=== PATIENT | male | born 1960 | race Caucasian/White ===

== ENCOUNTER 2019-09-20 09:05 | Emergency (ER) | payer BC, SELFPAY ==
[2019-09-20 09:07] VITALS: BP 126/67; PULSE 103; RESP 20; TEMP 37.7; O2SAT 99
--- NOTE | 2019-09-20 09:17 | ED.GENADULT ---
HPI - General Adult General Chief complaint: Upper Respiratory Infection Stated complaint: FEVER Time Seen by Provider: 09/20/19 09:18 Source: patient and RN notes reviewed Mode of arrival: ambulatory Limitations: no limitations History of Present Illness HPI narrative: This is a 59 years old male presents to the office for an evaluation of fever for one week. Fever starts with low grade and went up to 103 for the last three days. He also reports sinus headache, stuffy nose, cough and chest tightness at time. Symptoms are worse at night and in the morning. He has been taking Tylenol Mucinex for his symptoms. Denies sick contact at home. Related Data Home Medications Medication Instructions Recorded Confirmed Mucinex 09/20/19 Allergies Allergy/AdvReac Type Severity Reaction Status Date / Time No Known Allergies Allergy Verified 09/20/19 09:14 Review of Systems Review of Systems: Narrative: CONSTITUTIONAL:Reports fever and ache ENT: Reports sinus congestion and headache CARDIOVASCULAR: Denies chest pain RESPIRATORY: Reports a little chest tightness with cough at night GASTROINTESTINAL: Denies abdominal pain, vomiting, diarrhea. Reports nausea GENITOURINARY: Denies urinary symptoms SKIN: Denies rash MUSCULOSKELETAL: Denies acute back pain NEUROLOGIC: Reports dizziness at time; mostly in the morning. PMFSH Past Medical History Medical History Essential (primary) hypertension Family History Family History Grandparent Diabetes mellitus Hypertension Cerebrovascular accident Father Hypertension Family history of lung cancer Social History Social History Smoking status: Light tobacco smoker Alcohol intake: current Comments At time of signature, I agree with nursing past medical, surgical, social and family history. There is no relevant family history pertinent to the presenting complaint. Exam Narrative: Exam Narrative: GENERAL: This is a well-nourished, well-developed patient, in no apparent distress. EYES: Sclera clear/white. Vision is grossly intact. EARS: External ears normal, auditory canals clear and without drainage, TMs normal without perforation. Hearing grossly intact. NOSE: External nose normal with no obvious nasal discharge, nares without redness, no rhinorrhea. THROAT: Mucous membranes moist, posterior pharynx clear. NECK: Neck supple, non-tender without lymphadenopathy, masses or thyromegaly. CARDIOVASCULAR: Regular rate and rhythm without murmurs, gallops, or rubs. RESPIRATORY: Clear to auscultation. Breath sounds equal bilaterally. No wheezes, rales, or rhonchi. GASTROINTESTINAL: Abdomen soft, non-tender, nondistended. Bowel sounds are active. No hepato-splenomegaly, or palpable masses. No guarding. SKIN: warm, intact with no suspicious lesions or rash, good texture and turgor. NEURO: awake, alert, and oriented to person, place and time. There were no obvious focal neurologic abnormalities. Steady gait Psy: appears irritate because he has been pushing around and not able to get a definate answered as to what's wrong with him. Franky Coma Scale Eye Opening: Spontaneous 4 [place] Coma Scale Motor: Obeys Commands 6 [place] Coma Scale Verbal: Oriented 5 Course Vital Signs Vital signs: Vital Signs Temperature 98.2 F 09/20/19 09:07 Pulse Rate 103 H 09/20/19 09:07 Respiratory Rate 09/20/19 09:07 Blood Pressure 126/67 09/20/19 09:07 Pulse Oximetry 99 09/20/19 09:07 Temperature 98.2 F 09/20/19 09:07 Pulse Rate 103 H 09/20/19 09:07 Respiratory Rate 09/20/19 09:07 Blood Pressure 126/67 09/20/19 09:07 Pulse Oximetry 99 09/20/19 09:07 Medical Decision Making MDM Narrative Medical decision making narrative: Discharge instructions reviewed with patient, as well as provided in
== END 2019-09-20 09:43 | disposition home or self-care (01) ==
PROVIDERS: Emergency Provider Nurse Practitioner
DX: J06.9 Acute upper respiratory infection, unspecified (principal); F17.200 Nicotine dependence, unspecified, uncomplicated; I10 Essential (primary) hypertension
CPT/HCPCS: 99213; G0463

== ENCOUNTER 2021-08-03 21:58 | Inpatient (IN) | payer BC, SELFPAY ==
--- NOTE | ~2021-08-03 | XR_ITS ---
EXAMINATION: XR chest 2V DATE: 08/03/2021 22:54 INDICATION: Chest pain. TECHNIQUE: Frontal and lateral views of the chest were obtained. COMPARISON: None. FINDINGS: The chest demonstrates clear lungs without pneumonia, pleural effusion, or pneumothorax. Th e heart size is normal. IMPRESSION: 1. No acute cardiopulmonary disease. Reviewed, dictated and finalized at location A. 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
[2021-08-03 22:00] VITALS: BP 214/106; PULSE 86; RESP 18; TEMP 36.8; O2SAT 100
--- NOTE | 2021-08-03 22:00 | ECG_ITS ---
Measurements Intervals [place] Rate: 75 P: 46 WY: 160 QRS: 48 QRSD: 93 T: -67 QT: 365 QTc: 409 Interpretive Statements SINUS RHYTHM ST-T WAVE ABNORMALITY IN INF/LAT LEADS- CONSIDER ISCHEMIA ABNORMAL ECG Electronically Signed On 08-04-2021 6:26:57 [employer] by Chris Chang D.O.
[2021-08-03 22:13] LABS: Basophils Absolute Auto 0.1 K/mm3 (0.0-0.1); Basophils Percent Auto 0.5 % (0.2-1.2); Eosinophils Absolute Auto 0.4 K/mm3 (0-0.3); Eosinophils Percent Auto 4.4 % (0-4.4); Hematocrit 45.7 % (42.0-52.0); Hemoglobin 15.1 g/dL (14.0-18.0); Immature Granulocyte Absolute 0.03 K/mm3 (0.00-0.031); Immature Granulocyte Percent A 0.3 % (0-0.5); Lymphocytes Percent Auto 31.8 % (18.3-44.2); Mean Corpuscular Hemoglobin 31.9 pg (26-34); Mean Corpuscular Volume 96.4 fl (80-100); Mean Platelet Volume 9.7 fl (7.4-10.4); Monocytes Absolute Auto 1.2 K/mm3 (0.1-0.6); Monocytes Percent Auto 13.5 % (2.6-8.5); Neutrophils Absolute Auto 4.5 K/mm3 (1.3-6.7); Neutrophils Percent Auto 49.5 % (45.5-73.1); Platelet Count Result 153 k/mm3 (150-375); Red Blood Count 4.74 M/mm3 (4.6-6.20); White Blood Count 9.1 K/mm3 (4.5-10.0)
[2021-08-03 22:22] LABS: INR 0.9; Prothrombin Time 11.9 Seconds (11.1-14.7)
[2021-08-03 22:23] LABS: Partial Thromboplastin Time 32.8 SECONDS (22.3-36.8)
[2021-08-03 22:28] LABS: Alanine Aminotransferase 56 U/L (4-50); Albumin Level 4.8 g/dL (3.5-5.1); Alkaline Phosphatase 114 U/L (38-126); Anion Gap 7 mmol/L (8-16); Aspartate Amino Transferase 69 U/L (17-59); Bilirubin,Total 0.4 mg/dL (0.2-1.3); Blood Urea Nitrogen 22 mg/dL (9-20); Calcium 9.6 mg/dL (8.4-10.2); Carbon Dioxide 27 mmol/L (22-30); Chloride 104 mmol/L (98-107); Estimated Glomerular Filt Rate 52; Glucose 114 mg/dL (65-110); Lipase 177 U/L (23-300); Potassium 4.2 mmol/L (3.4-5.0); Sodium 138 mmol/L (137-145)
[2021-08-03] MEDS: ASPIRIN 81 MG CHEWABLE TABLET 324 MG PO (23:00)
[2021-08-03 23:03] VITALS: BP 190/99; PULSE 69; RESP 18; TEMP 36.8; O2SAT 99
[2021-08-03] MEDS: lisinopriL 20 MG TABLET 40 MG PO (23:14)
[2021-08-03] MEDS: NITROGLYCERIN SL 0.4 MG TABLET SUBLINGUAL (23:15)
[2021-08-03 23:16] VITALS: BP 185/101; PULSE 72; RESP 18; O2SAT 98
--- NOTE | 2021-08-03 23:45 | ED.CHESTPAIN ---
HPI - Chest Pain General Chief Complaint: Chest Pain Stated Complaint: chest pain Time Seen by Provider: 08/03/21 22:38 Source: patient Mode of arrival: ambulatory Limitations: no limitations History of Present Illness HPI narrative: 60-year-old with a history of hypertension, prediabetic here with complaints of midsternal chest pain on and off for past 1 week. Patient noticed when he was taking his dog for a walk he started having chest pain which lasted for few minutes dates subsided when he rested however for past 3 days he has been having steady chest pain with exertion. He also complains of unusual tiredness. Patient states that he had a cardiac cath when he was here in the approximately 30 years ago he denies any nausea or vomiting or diaphoresis with the pain. Presently he states his pain is 5 out of 10 and it is in mid chest . complaint: chest pain Onset (ago): week(s) (1) Timing of current episode: still present Prior episodes: No Onset: during exertion Pain location: substernal Pain radiation: none Severity: moderate Quality: tightness and heaviness Relieving factors: rest Exacerbating factors: exertion Risk Factors Coronary artery disease risk factors: hyperlipidemia and hypertension Related Data Home Medications Medication Instructions Recorded Confirmed Mucinex 09/20/19 09/14/20 Allergies Allergy/AdvReac Type Severity Reaction Status Date / Time No Known Allergies Allergy Verified 10/06/20 09:03 Review of Systems Review of Systems: All systems reviewed & are unremarkable except as noted in HPI and below Constitutional: Constitutional: Reports no additional constitutional complaints Eyes: Eyes: Reports no additional eye complaints ENT: Reports system reviewed and no additional complaints, except as documented Cardiovascular: Cardiovascular: Reports as per HPI Respiratory: Respiratory: Reports no additional respiratory complaints Gastrointestinal: Gastrointestinal: Reports no additional gastrointestinal complaints Musculoskeletal: Musculoskeletal: Reports no additional musculoskeletal complaints Integumentary/Breasts: Skin/Breast: Reports system reviewed and no additional complaints, except as docu Neurologic: Reports system reviewed and no additional complaints, except as documented Psychiatric: Psychiatric: Reports no additional psychiatric complaints PMFSH Past Medical History Medical History Encounter for long-term (current) use of other medications Enthesopathy of ankle Epidermal inclusion cyst Essential (primary) hypertension Heart palpitations Hypersomnia Obesity (BMI 30.0-34.9) Other and unspecified hyperlipidemia Pain of left great toe PAT (paroxysmal atrial tachycardia) Prediabetes Right Achilles tendinitis Screening for malignant neoplasm of prostate declined Subcutaneous mass Ventricular arrhythmia Vitamin D deficiency Family History Family History Grandparent Diabetes mellitus Hypertension Cerebrovascular accident Father Hypertension Family history of lung cancer Social History Social History Smoking status: Light tobacco smoker Tobacco type: cigars Alcohol intake: current Drinks per week: 12 Alcohol use details: beer and scotch Substance use: never Gender identity (if verbalized by the patient): Male Sexual Orientation (if Verbalized by the Patient): Straight or Heterosexual Exam Narrative: GENERAL: Well-appearing, well-nourished, and in no acute distress. HEAD: Normocephalic, atraumatic. EYES: PERRLA and EOMI. NECK: Supple. CHEST: Clear to auscultation. No respiratory distress. HEART: Regular rate and rhythm. No murmur heard. Normal peripheral pulses. ABDOMEN: Soft, nontender, nondistended, normal active bowel sounds. EXTREMITIES: Normal range of motion. N
[2021-08-03 23:46] VITALS: BP 159/86; PULSE 64; RESP 18; O2SAT 99
[2021-08-03] MEDS: NITROGLYCERIN OINTMENT 1 INCH DOSE TOPICAL (23:57)
[2021-08-03] MEDS: ENOXAPARIN 100 MG/ML SYRINGE SUB-Q (23:57)
[2021-08-04] VITALS (24 sets, daily range): BP systolic 124–175; BP diastolic 67–97; PULSE 58–95; RESP 15–18; TEMP 36–36.8; O2SAT 96–100; BMI 29.9
--- NOTE | 2021-08-04 | ECHO_ITS ---
Patient Info Name: aSntos Renee Age: 60 years : 1960 Gender: Male Ht: 69 in Wt: 202 lbs BSA: 2.14 m2 HR: 58 bpm BP: 150 / 77 mmHg Heart Rhythm: Sinus Rhythm Exam Date: 08/04/2021 1:33 PM Exam Location: [facility] Patient Status: Inpatient Admit Date: 08/03/2021 Staff Ordering Physician: Jorge Chao MD Steeple Jack: Melquiades Flores, RAHUL, RT Attending Provider: John Ontiveros MD Referring Physician: Zhanna WARE; Exam Type: CA echo dop color flow w con Study Info Indications I21.4 - Non-ST elevation (NSTEMI) myocardial infarction Complete two-dimensional, color flow and Doppler transthoracic echocardiogram is performed with contrast to opacify the left ventricle and to improve the deliniation of the left ventricle endocardial borders. Summary 1. Left ventricular chamber dimension is normal. 2. Left ventricular systolic function is normal, estimated at 60-65%. 3. There is mildly increased left ventricular wall thickness. 4. The left ventricular diastolic function is normal. 5. The basal inferior wall, and mid inferior wall are hypokinetic. 6. There is mild mitral valve regurgitation. 7. There is mild tricuspid valve regurgitation. 8. There is mild pulmonic regurgitation. Left Ventricle Left ventricular chamber dimension is normal. Left ventricular systolic function is normal, estimated at 60-65%. There is mildly increased left ventricular wall thickness. The left ventricular diastolic function is normal. The basal inferior wall, and mid inferior wall are hypokinetic. All other odom appear normal. Right Ventricle Right ventricular chamber dimension is normal. Right ventricular systolic function is normal. Left Atria Left atrial chamber dimension is normal. Right Atria Right atrial chamber dimension is normal. Atrial Septum Intact interatrial septum visualized by color flow imaging. Aortic Valve The aortic valve is trileaflet. There is mild aortic valve sclerosis. There is no aortic valve stenosis. There is trace aortic valve regurgitation. Pulmonic Valve The pulmonic valve is normal. There is no pulmonic valve stenosis. There is mild pulmonic regurgitation. Mitral Valve The mitral valve has calcified annulus. There is no mitral valve stenosis. There is mild mitral valve regurgitation. Tricuspid Valve The tricuspid valve leaflets are normal. There is no significant tricuspid valve stenosis. There is mild tricuspid valve regurgitation. No pulmonary hypertension, estimated pulmonary arterial systolic pressure is 30 mmHg. Pericardium/Pleural The pericardium appears normal. There is no pericardial effusion. Inferior Vena Cava Normal inferior vena cava with <50% collapse upon inspiration consistent with elevated right atrial pressure, 10 mmHg. Aorta The aortic root size at the sinus of Valsalva is normal. The prox ascending aorta size is normal. Left Ventricular Outflow Tract Name Value Normal LVOT 2D LVOT Diameter 2.00 cm LVOT Doppler LVOT Peak Gradient 3 mmHg LVOT Mean Gradient 2 mmHg
[2021-08-04] MEDS: SODIUM CHLORIDE 0.9% IV 1,000 ML 75 ML IV CONT (01:23)
[2021-08-04 01:52] LABS: SARS-CoV-2 RNA PCR Negative
--- NOTE | 2021-08-04 03:50 | ADMGEN ---
This patient, Santos Renee, was admitted to IMU Room 207-01. Patient/family oriented to hospital policies and general routines including ID bracelet, bed and alarms, visiting hours, pain management, procedures, bathroom and other care routines, personal items, smoking policy, room service/diet, and visiting hours. Information on how to activate the Rapid Response Team has been discussed. Patient/Family are encouraged to report perceived risks to care and to ask questions if they do not understand what they are told or what they should do.
--- NOTE | 2021-08-04 04:34 | PM.IMHP ---
H&P: HPI History of Present Illness Date/Time: 08/04/21 04:34 Chief Complaint: Chest pain Narrative: 60-year-old male with a history of hypertension, prediabetes who presents to the ED with midsternal chest pain off and on since past week. Patient states that when he was taking his dog for a walk he started having chest pain that lasted a few minutes and subsided when he rested. For the past 3 days he has been having steady chest pain with exertion along with unusual tiredness. He presents to the ED for evaluation. In the ED was given sublingual nitro which relieved his pain. He was noted to be hypertensive on arrival which improved with nitro as well. His creatinine was 1.4 otherwise CBC and BMP was unremarkable. AST ALT mildly elevated lipase was normal however troponin came back elevated at 1.35. Chest x-ray was negative EKG showed inverted T-waves in inferior and lateral leads. He was given Lovenox along with Aspirin and getting admitted for further evaluation and management. He currently is complaining of headache. Review of Systems Review of Systems: - CONSTITUTIONAL: Denies weight loss, fever and chills. - HEENT: Denies changes in vision and hearing - RESPIRATORY: Reports SOB and denies cough. - CV: Denies palpitations and reports CP. - GI: Denies abdominal pain, nausea, vomiting and diarrhea. - : Denies dysuria and urinary frequency. - MSK: Denies myalgia and joint pain. - SKIN: Denies rash and pruritus. - NEUROLOGICAL: Reports headache and denies syncope. - PSYCHIATRIC: Denies recent changes in mood. Denies anxiety and depression. All systems reviewed & are unremarkable except as noted in HPI and below Constitutional: Constitutional: Reports fatigue and Reports weakness Neurologic: Reports weakness Endocrine: Endocrine: Reports fatigue PMFSH Past Medical History Medical History Encounter for long-term (current) use of other medications Enthesopathy of ankle Epidermal inclusion cyst Essential (primary) hypertension Heart palpitations Hypersomnia Obesity (BMI 30.0-34.9) Other and unspecified hyperlipidemia Pain of left great toe PAT (paroxysmal atrial tachycardia) Prediabetes Right Achilles tendinitis Screening for malignant neoplasm of prostate declined Subcutaneous mass Ventricular arrhythmia Vitamin D deficiency Family History Family History Grandparent Diabetes mellitus Hypertension Cerebrovascular accident Father Hypertension Family history of lung cancer Social History Social History Smoking status: Current every day smoker Tobacco type: cigars Alcohol intake: current Drinks per week: 12 Alcohol use details: beer and scotch Substance use: never Substance use type: does not use Gender identity (if verbalized by the patient): Male Sexual Orientation (if Verbalized by the Patient): Straight or Heterosexual Spiritual care concerns: No Meds Home Medications and Allergies Home Medications Medication Instructions Recorded Confirmed Type lisinopril 40 mg tablet 40 mg PO DAILY #90 tablet 02/21/21 08/04/21 Rx Allergies Allergy/AdvReac Type Severity Reaction Status Date / Time No Known Allergies Allergy Verified 10/06/20 09:03 Vital Signs Vital Signs - 24 hr 08/03/21 22:00 08/03/21 23:03 08/03/21 23:16 Temperature 98.3 F 98.2 F Pulse Rate 86 69 72 Respiratory Rate 18 18 18 Blood Pressure 214/106 H 190/99 H 185/101 H Pulse Oximetry 100 99 98 08/03/21 23:46 08/04/21 00:00 08/04/21 00:19 Temperature Pulse Rate 64 65 63 Respiratory Rate 18 18 18 Blood Pressure 159/86 H 161/78 H 143/81 H Pulse Oximetry 99 99 99 08/04/21 03:22 08/04/21 03:50 08/04/21 04:14 Temperature 97.8 F Pulse Rate 64 81 66 Respiratory Rate 18 16 Blood Pressure 154/84 H 162/97 H Puls
[2021-08-04 05:58] LABS: Anion Gap 6 mmol/L (8-16); Blood Urea Nitrogen 20 mg/dL (9-20); Calcium 9.2 mg/dL (8.4-10.2); Carbon Dioxide 26 mmol/L (22-30); Chloride 104 mmol/L (98-107); Estimated CRCL calculation 67 ml/min; Estimated Glomerular Filt Rate > 60; Glucose 141 mg/dL (65-110); Potassium 4.4 mmol/L (3.4-5.0); Sodium 136 mmol/L (137-145)
[2021-08-04] MEDS: MORPHINE SULFATE (*CRX) 4 MG/ML INJ IV PUSH (06:43)
[2021-08-04 07:53] LABS: Cholesterol 234 mg/dL (0-200); HDL Direct 50 mg/dL; Triglycerides 258 mg/dL (<150)
[2021-08-04 07:58] LABS: Hemoglobin A1C 6.2 % (<5.7)
[2021-08-04 08:04] LABS: LDL Cholesterol Direct 130 mg/dL
--- NOTE | 2021-08-04 08:52 | PM.CNCAR ---
Assessment and Plan Assessment and plan (1) Non-ST elevation (NSTEMI) myocardial infarction: Code(s): I21.4 - Non-ST elevation (NSTEMI) myocardial infarction Status: Acute Assessment and Plan: He has significant elevated troponin which is medical field representative of a non ST-elevation myocardial infarction. Most likely scenario is acute plaque rupture but can not exclude other possibilities including marked hypertension/hypertensive emergency or even stress-induced cardiomyopathy but as he has been under more social stress at home recently. Regardless though given his abnormal EKG and risk factors coronary disease, I have talked about the risks benefits alternatives of proceeding with coronary angiogram and he is agreeable to proceed with a cardiac catheterization to define his anatomy. Keep him NPO. He is receiving IV fluids at this point which should be continued at 75 cc/hour. Aspirin 81 mg p.o. daily, atorvastatin 40 mg p.o. daily have been started. Will increase his metoprolol to 25 mg p.o. b.i.d.. Continue lisinopril at current dose. Upon my order, he did receive 1 milligram/kilogram of enoxaparin subcutaneously last night. 2D echocardiogram Doppler be ordered and reviewed. Further workup recommendation pain on the results of his angiogram. Continue to trend troponins until peak. (2) Mixed hyperlipidemia: Code(s): E78.2 - Mixed hyperlipidemia Status: Acute Assessment and Plan: Will start statin (3) Prediabetes: Code(s): R73.03 - Prediabetes Status: Acute Assessment and Plan: Per hospitalist (4) Essential (primary) hypertension: Code(s): I10 - Essential (primary) hypertension Status: Chronic Assessment and Plan: Above goal. Starting metoprolol and will increase to 25 mg p.o. b.i.d.. Continue lisinopril. (5) PAT (paroxysmal atrial tachycardia): Code(s): I47.1 - Supraventricular tachycardia Status: Acute Assessment and Plan: Workup in the past showing brief episodes of PAT. No significant palpitations recently Will order comprehensive metabolic panel also to re-evaluate his liver function as is AST and ALT were elevated at presentation. History of Present Illness History of Present Illness Consult date/time: 08/04/21 08:52 Requesting physician: Kolton Pace MD Consult reason: chest pain and Other (Non-STEMI) Reason For Visit: NSTEMI Narrative: Date of service 08/04/[address]-elevation myocardial infarction Requesting provider: Dr. Pace History patient is a 60-year-old male has history of hypertension, hyperlipidemia, prediabetes who presented to hospital because of chest pain. About 1/2 weeks ago he developed some anterior chest discomfort while walking his dog. Usually walks his dog about 3 miles a day and he developed some discomfort in his chest that went away after several minutes with rest. Several other days went by whenever he had no other symptoms but then he had another episode of chest discomfort also while walking his dog. Since that time he has had progressively worsening and more frequent episodes. Two days ago he started developing chest discomfort and achiness that did radiate up into his jaw. Generally worsened with activity and better with rest. Symptoms last for several minutes at a time. No shortness of breath, nausea or diaphoresis. He has been under more stress to situations at home lately. Blood pressure also has been elevated during this same time frame. Because of the chest symptoms over the past couple of days being present more frequently than not, he decided come to the ER for further workup evaluation. Troponins were drawn initial troponins 1.35 and have continue to rise slowly. He was given sublingual nitroglycerin in the emergency department which did help his pain. It should be noted his blood pressure in the ER was markedly elevated at 214/106 at presentation. He does state t
[2021-08-04 10:27] LABS: Alanine Aminotransferase 49 U/L (4-50); Albumin Level 4.2 g/dL (3.5-5.1); Alkaline Phosphatase 90 U/L (38-126); Anion Gap 4 mmol/L (8-16); Aspartate Amino Transferase 68 U/L (17-59); Bilirubin,Total 0.6 mg/dL (0.2-1.3); Blood Urea Nitrogen 17 mg/dL (9-20); Calcium 8.9 mg/dL (8.4-10.2); Carbon Dioxide 27 mmol/L (22-30); Chloride 105 mmol/L (98-107); Estimated CRCL calculation 80 ml/min; Estimated Glomerular Filt Rate > 60; Glucose 142 mg/dL (65-110); Potassium 4.1 mmol/L (3.4-5.0); Sodium 136 mmol/L (137-145)
[2021-08-04] MEDS: METOPROLOL TARTRATE 25 MG TABLET PO ×2 (10:33→21:36)
[2021-08-04] MEDS: ACETAMINOPHEN 325 MG TABLET 650 MG PO (10:34)
[2021-08-04] MEDS: ASPIRIN 81 MG ENTERIC TABLET PO (10:34)
[2021-08-04] MEDS: lisinopriL 20 MG TABLET 40 MG PO (10:34)
--- NOTE | 2021-08-04 12:43 | WPDMODSED ---
Moderate Sedation Note-Pt Data Patient Data Allergies Allergy/AdvReac Type Severity Reaction Status Date / Time No Known Allergies Allergy Verified 10/06/20 09:03 Home Medications Medication Instructions Recorded Confirmed Type lisinopril 40 mg tablet 40 mg PO DAILY #90 tablet 02/21/21 08/04/21 Rx Current Medications: Active Medications Acetaminophen (Acetaminophen 325 Mg Tablet) 650 mg PO Q4H PRN PRN Reason: Mild Pain (1-3) or Fever Last Admin: 08/04/21 10:34 Dose: 650 mg Documented by: Aspirin (Aspirin 81 Mg Enteric Tablet) 81 mg PO QAM [facility] Last Admin: 08/04/21 10:34 Dose: 81 mg Documented by: Atorvastatin Calcium (Atorvastatin 40 Mg Tablet) 40 mg PO HS [facility] Enoxaparin Sodium (Enoxaparin 100 Mg/Ml Syringe) 92 mg SUB-Q Q12H [facility] Sodium Chloride (Normal Saline Iv) 1,000 mls @ 75 mls/hr IV CONT .[id number] [facility] Last Admin: 08/04/21 01:23 Dose: 75 mls/hr Documented by: Lisinopril (Lisinopril 20 Mg Tablet) 40 mg PO DAILY [facility] Last Admin: 08/04/21 10:34 Dose: 40 mg Documented by: Metoprolol Tartrate (Metoprolol Tartrate 25 Mg Tablet) 25 mg PO Q12HR [facility] Last Admin: 08/04/21 10:33 Dose: 25 mg Documented by: Morphine Sulfate (Morphine Sulfate (*Crx) 4 Mg/Ml Inj) 4 mg IV PUSH Q2H PRN PRN Reason: Pain Rated 7-10 Last Admin: 08/04/21 06:43 Dose: 2 mg Documented by: Nitroglycerin (Nitroglycerin Sl 0.4 Mg Tablet) 0.4 mg SUBLINGUAL Q5MIN PRN PRN Reason: Chest Pain Ondansetron HCl (Ondansetron Inj 4 Mg/2 Ml Vial) 4 mg IV PUSH Q4H PRN PRN Reason: Nausea Perflutren Lipid Microsphere (Perflutren Lipid Microspheres 1.5 Ml Vial Diluted To 10 Ml Total Volume) 0 ml IV PUSH ONCE PRN; Protocol PRN Reason: adequate visualization Sedation/Anesthesia: No previous sedation/anesthesia problems (including family history). [facility] Past Medical History Medical History Encounter for long-term (current) use of other medications Enthesopathy of ankle Epidermal inclusion cyst Essential (primary) hypertension Heart palpitations Hypersomnia Obesity (BMI 30.0-34.9) Other and unspecified hyperlipidemia Pain of left great toe PAT (paroxysmal atrial tachycardia) Prediabetes Right Achilles tendinitis Screening for malignant neoplasm of prostate declined Subcutaneous mass Ventricular arrhythmia Vitamin D deficiency Family History Family History Grandparent Diabetes mellitus Hypertension Cerebrovascular accident Father Hypertension Family history of lung cancer Social History Social History Smoking status: Current every day smoker Tobacco type: cigars Alcohol intake: current Drinks per week: 12 Alcohol use details: beer and scotch Substance use: never Substance use type: does not use Gender identity (if verbalized by the patient): Male Sexual Orientation (if Verbalized by the Patient): Straight or Heterosexual Spiritual care concerns: No Mod Sed Physical Exam Physical Exam Pre Procedural Exam: Normal: Appearance, Eyes, Ears, Nose, Neck, Throat, Airway, Lungs, Heart Size, Heart Rate, Heart Rhythm, Neuro Exam, Abdomen, Liver, Kidneys, Spleen, Breasts, Genitalia, Extremities and Skin Hours since solid foods: 8 Hours since liquid intake: 8 Mallampati Classification: class 1 Internal Medicine - PN: Obj Da Vital Signs Vital Signs: Vital Signs - 24 hr 08/03/21 22:00 08/03/21 23:03 08/03/21 23:16 Temperature 36.8 C 36.8 C Pulse Rate 86 69 72 Respiratory Rate 18 18 18 Blood Pressure 214/106 H 190/99 H 185/101 H Pulse Oximetry 100 99 98 08/03/21 23:46 08/04/21 00:00 08/04/21 00:19 Temperature Pulse Rate 64 65 63 Respiratory Rate 18 18 18 Blood Pressure 159/86 H 161/78 H 143/81 H Pulse Oximetry 99 99 99 08/04/21 03:22 08/04/21 03:50 08/04/21 04:00 Temperature 36.6 C Pulse Rate 64 81 63 Respiratory Rat
--- NOTE | 2021-08-04 12:44 | WPDHPUPDATE1 ---
History and Physical Update Update Date/Time: 08/04/21 12:44 History and Physical has been reviewed, including an updated exam of the patient. There are NO changes in the patient's condition. Risks, benefits, and alternatives have been discussed and questions answered. Patient agrees to proceed with procedure.
--- NOTE | 2021-08-04 12:44 | WPDCARDPROC ---
Cardiac Cath Procedure Note Date of procedure:: 08/04/21 Performing physician:: Reid Courtney MD date of service 08/04/2021 Indication:: NSTEMI Brief clinical history:: patient is a 60-year-old male has history of hypertension, hyperlipidemia, prediabetes who presented to hospital because of chest pain. was found to have elevated troponins at 1.5. His blood pressure on admission was high 214/120. Due to elevated troponins we decided to bring him here to electrical laboratory technician and will out obstructive coronary disease. Procedure Procedure performed:: 1-Moderate sedation that started at 11:24 a.m.and ended at 12:37 p.m. with total duration 73 minutes using3 mg of Versed and 100mcg fentanyl. The registered nurse was heron baca. 2-Selective left and right coronary angiogram. 3-Left heart catheterization with measurement of LVEDP and measurement of gradient across aortic valve. 4- LV angiogram. 5- deployment of drug-eluting stent Xience 3 x 23 comparing distal RCA into right PDA. 6- deployment with drug-eluting stent Xience 3 x 18 covering mid to distal left circumflex artery under nominal pressure for 25 seconds. 7-Right common femoral arterial angiogram. 8-Deployment of 6 Lao Angio-Seal. Sedation/Medication given:: Moderate sedation. Access site:: Right common femoral artery. Estimated blood loss:: 10cc Procedure note:: After informed consent patient was brought in to electrical laboratory technician with the was draped and prepped in usual manner. Moderate sedation was given and the right groin was infiltrated using 1% lidocaine. Five Lao sheath was obtained using micropuncture needle and the modified Seldinger technique. Selective left coronary angiogram was done using JL4 catheter with the tip of the catheter placed in the left main coronary artery. Selective right coronary angiogram was done using JR4 catheter with the tip of the catheter placed to the right coronary artery. After that 5 Lao pigtail catheter was advanced across the aortic valve into the left ventricle with measurement of LVEDP and measurement of gradient across aortic valve. LV angiogram done. Right common femoral arterial angiogram was done. after that he RCA was engaged using his guide catheter JR4. Balance Engineer 150 wire was advanced to distal PDA. Balloon angioplasty done using 2.5 x 15 balloon with 3 inflations each under 16 atmospheres for 25 seconds. Then deployed a drug-eluting stent Xience 3 x 23 confirming distal RCA into the right PDA. Deployed it with 2 atmospheres above nominal and for total of 25 seconds. subsequently the left main coronary artery was engaged views using 6 Lao guide catheter CLS 3.5. Wiring of the left circumflex artery was done using luge coronary wire. Direct stenting done using Xience 3 x 18 stent under nominal pressure for 25 seconds. Angio-Seal deployed. Findings:: 1- left coronary artery is a large artery that divides into large LAD, large circumflex artery. Left main is free of disease. 2- left anterior descending artery is a large artery that runs and wraps around the apex. minimal irregularities. Small to medial diagonal 1 small to medium diagonal 2 branch with proximal 30% each. 3- leftcircumflex artery is a large artery Large artery. Distal left circumflex artery there is about 80% hazy lesion. [id number] collaterals from left circumflex artery. 4- right coronary artery is Large artery and dominant and totally occluded at ostium of the right PDA. 5- LVEDP was 12 mm Hg and no gradient across aortic valve. 6- opening arterial pressure was 130/80and closing pressure was 110/70 7- right femoral artery angiogram shows no significant disease in the right common femoral artery. Conclusion:: - totally occluded distal RCA into right PDA status post stenting using 3 x 23 stent. - high-grade stenosis in the mid to distal left circumflex artery status post stenting using 3 x 18 stent. - normal LV systolic function with estimated ejection fraction 60% however there is in
[2021-08-04] MEDS: PERFLUTREN LIPID MICROSPHERES 1.5 ML VIAL DILUTED TO 10 ML TOTAL VOLUME IV PUSH (14:00)
--- NOTE | 2021-08-04 14:06 | SUR.PHASEII ---
1400-attempted to call report to floor nurse. unavailable at this time.
--- NOTE | 2021-08-04 14:19 | ECG_ITS ---
Measurements Intervals [place] Rate: 64 P: 39 MN: 157 QRS: 51 QRSD: 93 T: -64 QT: 412 QTc: 428 Interpretive Statements SINUS RHYTHM WITH SINUS ARRHYTHMIA INFERIOR INFARCT, PROBABLY RECENT ST-T WAVE ABNORMALITY IN LATERAL LEADS- CONSIDER ISCHEMIA ABNORMAL ECG Electronically Signed On 08-04-2021 15:21:53 [employer]ER by Chris Chang D.O.
[2021-08-04] MEDS: SODIUM CHLORIDE 0.9% IV 1,000 ML 125 ML IV CONT (15:16)
--- NOTE | 2021-08-04 15:21 | PM.IMPN ---
Progress Note: A&P Assessment and Plan (1) Non-ST elevation (NSTEMI) myocardial infarction: Code(s): I21.4 - Non-ST elevation (NSTEMI) myocardial infarction Status: Acute Assessment and Plan: 08/04/2021 interval history: patient with chest pain found to have a non STEMI was seen by range master patient had a cardiac catheterization it showed 2 vessel severe coronary artery disease, both vessels were stented patient started on Brilinta and aspirin recommended intensive medical management, currently patient states feeling better denies any chest pain, will continue to monitor and further recommendation to follow. (2) Mixed hyperlipidemia: Code(s): E78.2 - Mixed hyperlipidemia Status: Acute (3) Hypersomnia: Code(s): G47.10 - Hypersomnia, unspecified Status: Acute (4) Obesity (BMI 30.0-34.9): Code(s): E66.9 - Obesity, unspecified Status: Acute (5) Essential (primary) hypertension: Code(s): I10 - Essential (primary) hypertension Status: Chronic (6) Prediabetes: Code(s): R73.03 - Prediabetes Status: Acute (7) Vitamin D deficiency: Code(s): E55.9 - Vitamin D deficiency, unspecified Status: Acute Additional Plan # non ST-elevation [place] Lovenox aspirin cardiology consult NPO after midnight for cardiac catheterization nitro p.r.n. for chest pain add beta-jenniffer metoprolol 12.5 mg p.o. b.i.d. and statin check lipid profile and A1c # hypertension uncontrolled on admission improved with nitro and lisinopril was also given in the ER. Resume lisinopril and adjust as needed # hyperlipidemia check lipid profile # renal insufficiency mild creatinine 1.4 gentle IV hydration creatinine monitor renal function # obesity # prediabetes check A1c # DVT prophylaxis Lovenox # full code status 08/04/2021 interval history: patient with chest pain found to have a non STEMI was seen by range master patient had a cardiac catheterization it showed 2 vessel severe coronary artery disease, both vessels were stented patient started on Brilinta and aspirin recommended intensive medical management, currently patient states feeling better denies any chest pain, will continue to monitor and further recommendation to follow. Subjective Date/time seen: 08/04/21 15:21 Chief Complaint: Chest pain Narrative: 60-year-old male with a history of hypertension, prediabetes who presents to the ED with midsternal chest pain off and on since past week. Patient states that when he was taking his dog for a walk he started having chest pain that lasted a few minutes and subsided when he rested. For the past 3 days he has been having steady chest pain with exertion along with unusual tiredness. He presents to the ED for evaluation. In the ED was given sublingual nitro which relieved his pain. He was noted to be hypertensive on arrival which improved with nitro as well. His creatinine was 1.4 otherwise CBC and BMP was unremarkable. AST ALT mildly elevated lipase was normal however troponin came back elevated at 1.35. Chest x-ray was negative EKG showed inverted T-waves in inferior and lateral leads. He was given Lovenox along with Aspirin and getting admitted for further evaluation and management. He currently is complaining of headache. 08/04/2021 interval history: patient with chest pain found to have a non STEMI was seen by range master patient had a cardiac catheterization it showed 2 vessel severe coronary artery disease, both vessels were stented patient started on Brilinta and aspirin recommended intensive medical management, currently patient states feeling better denies any chest pain, will continue to monitor and further recommendation to follow. Review of Systems Review of Systems: All systems reviewed & are unremarkable except as noted in HPI and below Exam Narrative: Patient is comfortable, NAD HEENT: eyes are clear and none icteric LUNGS: normal respiratory effort ABD:
[2021-08-04] MEDS: ATORVASTATIN 40 MG TABLET PO (21:36)
[2021-08-04] MEDS: TICAGRELOR 90 MG TABLET PO (21:37)
[2021-08-05] VITALS (9 sets, daily range): BP systolic 119–138; BP diastolic 64–75; PULSE 63–86; RESP 16–22; TEMP 35.6–37.2; O2SAT 97–100
[2021-08-05 06:09] LABS: Hematocrit 39.7 % (42.0-52.0); Hemoglobin 13.3 g/dL (14.0-18.0); Mean Corpuscular HGB Conc 33.5 g/dl (32-36); Mean Corpuscular Volume 95.4 fl (80-100); Mean Platelet Volume 10.3 fl (7.4-10.4); Platelet Count Result 153 k/mm3 (150-375); Red Blood Count 4.16 M/mm3 (4.6-6.20); Red Cell Distribution Width 11.9 % (11.5-14.5); White Blood Count 11.5 K/mm3 (4.5-10.0)
[2021-08-05 06:24] LABS: Anion Gap 10 mmol/L (8-16); Blood Urea Nitrogen 14 mg/dL (9-20); Calcium 8.9 mg/dL (8.4-10.2); Carbon Dioxide 25 mmol/L (22-30); Chloride 100 mmol/L (98-107); Estimated CRCL calculation 73 ml/min; Estimated Glomerular Filt Rate > 60; Glucose 129 mg/dL (65-110); Potassium 4.1 mmol/L (3.4-5.0); Sodium 135 mmol/L (137-145)
--- NOTE | 2021-08-05 07:00 | ECG_ITS ---
Measurements Intervals [place] Rate: 65 P: 42 [place]: 160 QRS: 59 QRSD: 88 T: -58 QT: 385 QTc: 401 Interpretive Statements SINUS RHYTHM INFERIOR INFARCT, PROBABLY RECENT ST-T WAVE ABNORMALITY IN LATERAL LEADS- CONSIDER ISCHEMIA ABNORMAL ECG Electronically Signed On 08-05-2021 8:30:04 [employer]TRASOUND APPLICATIONS SPECIALIST by Chris Chang D.O.
--- NOTE | 2021-08-05 08:26 | PM.PNCARD ---
Progress Note: A&P Assessment and Plan (1) Non-ST elevation (NSTEMI) myocardial infarction: Code(s): I21.4 - Non-ST elevation (NSTEMI) myocardial infarction Status: Acute Assessment and Plan: Presented to the hospital with complaints of chest pain. He did have significant troponin elevation and some ST-T abnormalities on EKG. Therefore, coronary angiogram was recommended. He underwent LHC and is s/p PCI to the PDA and circumflex arteries. Chest pain has resolved. Echocardiogram showed normal EF with hypokinesis of the basal and mid inferior wall. Continue DAPT with ASA, Brilinta Continue statin Continue lisinopril Continue metoprolol Recommend cardiac rehab Heart healthy diet (2) Mixed hyperlipidemia: Code(s): E78.2 - Mixed hyperlipidemia Status: Acute Assessment and Plan: Continue statin. (3) Prediabetes: Code(s): R73.03 - Prediabetes Status: Acute Assessment and Plan: Per hospitalist (4) Essential (primary) hypertension: Code(s): I10 - Essential (primary) hypertension Status: Chronic Assessment and Plan: Improved with addition of metoprolol. Continue lisinopril. (5) PAT (paroxysmal atrial tachycardia): Code(s): I47.1 - Supraventricular tachycardia Status: Acute Assessment and Plan: Workup in the past showing brief episodes of PAT. No significant palpitations recently Subjective Date/time seen: 08/05/21 08:26 Cardiology follow up for NSTEMI Feels well this morning and has no complaints of any kind. Wants to go home. He denies any chest pain, shortness of breath, palpitations. Review of Systems Review of Systems: All systems reviewed & are unremarkable except as noted in HPI and below Constitutional: Constitutional: Denies excessive sweating, Reports headache(s) and Denies weakness Eyes: Eyes: Denies blurry vision ENT: Reports Normal hearing present, Reports headache(s) and Denies neck pain Cardiovascular: Cardiovascular: Reports chest pain and Denies dyspnea Respiratory: Respiratory: Denies dyspnea Gastrointestinal: Gastrointestinal: Denies abdominal pain Genitourinary: Genitourinary: Denies dysuria Musculoskeletal: Musculoskeletal: Denies back pain and Denies neck pain Integumentary/Breasts: Skin/Breast: Denies dry skin Neurologic: Reports Normal hearing present, Reports headache(s) and Denies weakness Psychiatric: Psychiatric: Denies anxiety Endocrine: Endocrine: Denies excessive sweating Hematologic/Lymphatic: Hematologic/Lymphatic: Denies easy bleeding Allergic/Immunologic: Allergic/Immunologic: Denies GI upset with certain foods Exam Narrative: Awake alert oriented appears stated age Const: General: comfortable and no acute distress HENMT: General nose exam: Normal nares present Eyes: Sclera: sclerae normal Neck: Neck: supple and no JVD Chest: Other: No reproducible chest wall pain to palpation Resp: Auscultation: clear to auscultation bilaterally Cardio: Rate: regular rate Rhythm: regular rhythm Heart sounds: no murmurs GI: Auscultation: normal bowel sounds Skin: General skin exam: normal color Other: right groin arterial access site free from bleeding, hematoma, pain, or bruit Neuro: Cranial nerves: Yes Normal hearing present Cognition (Neuro): normal cognition Speech: normal speech Extrem: General: normal to inspection and no edema Psych: Mental Status: mental status grossly normal Objective Data Vital Signs Vital Signs: Vital Signs - 24 hr 08/04/21 09:00 08/04/21 10:00 08/04/21 10:33 Temperature 36.4 C L Pulse Rate 67 70 80 Pulse Rate [Bilateral Pedal (Dorsalis Pedis)] Respiratory Rate 16 Blood Pressure 150/77 H Pulse Oximetry 100 08/04/21 12:50 08/04/21 13:00 08/04/21 13:15 Temperature Pulse Rate 70 58 L 61 Pulse Rate [Bilateral Pedal (Dorsalis Pedis)] 59 L 68 62 Respiratory Rate 15 16 15 Blood Pressure 133/7
[2021-08-05] MEDS: lisinopriL 20 MG TABLET 40 MG PO (10:24)
[2021-08-05] MEDS: METOPROLOL TARTRATE 25 MG TABLET PO (10:24)
[2021-08-05] MEDS: ASPIRIN 81 MG ENTERIC TABLET PO (10:24)
[2021-08-05] MEDS: TICAGRELOR 90 MG TABLET PO (10:25)
--- NOTE | 2021-08-05 12:42 | PM.DS ---
DS: Admitting Diagnosis Discharge Date 08/05/2021 Admitting Diagnosis chest pain DS: Discharge Diagnosis Discharge Diagnosis (1) Non-ST elevation (NSTEMI) myocardial infarction: Code(s): I21.4 - Non-ST elevation (NSTEMI) myocardial infarction Status: Acute Assessment and Plan: patient with chest pain found to have a non STEMI was seen by fuel cell binder patient had a cardiac catheterization it showed 2 vessel severe coronary artery disease, both vessels RCA and LCX were stented patient started on Brilinta and aspirin recommended intensive medical management. okoay to discharge per cardiology and will follow up as op basis. (2) Mixed hyperlipidemia: Code(s): E78.2 - Mixed hyperlipidemia Status: Acute (3) Hypersomnia: Code(s): G47.10 - Hypersomnia, unspecified Status: Acute (4) Obesity (BMI 30.0-34.9): Code(s): E66.9 - Obesity, unspecified Status: Acute (5) Essential (primary) hypertension: Code(s): I10 - Essential (primary) hypertension Status: Chronic (6) Prediabetes: Code(s): R73.03 - Prediabetes Status: Acute (7) Vitamin D deficiency: Code(s): E55.9 - Vitamin D deficiency, unspecified Status: Acute DS: Summary Hospital Course Hospital Course: see above Time Spent with Patient Time attestation: Total time spent providing and/or coordinating discharge services:35 mins Exam Narrative: GENERAL: Well-appearing, well-nourished, and in no acute distress. HEAD: Normocephalic, atraumatic. EYES: PERRLA and EOMI. NECK: Supple. Nontender CHEST: Clear to auscultation. No respiratory distress. HEART: Regular rate and rhythm. No murmur heard. Normal peripheral pulses. ABDOMEN: Soft, nontender, nondistended, normal active bowel sounds. EXTREMITIES: Normal range of motion. No edema. SKIN: Warm, dry, no rash. NEURO: No focal deficits. Alert and oriented x3. PSYCH: Normal mood and affect. DS: Data Data Completed and Pending Completed studies during hospitalization: Ordering Physician: Jorge Chao MD Date of Service: 08/04/21 Procedure(s): CA echo dop color flow w con Accession Number(s): [id number] cc: Bean Cates MD; Jorge Chao MD~ Patient Info Name: Santos Renee Age: 60 years : 1960 Gender: Male Ht: 69 in Wt: 202 lbs BSA: 2.14 m2 HR: 58 bpm BP: 150 / 77 mmHg Heart Rhythm: Sinus Rhythm Exam Date: 08/04/2021 1:33 PM Exam Location: [facility] Patient Status: Inpatient Admit Date: 08/03/2021 Staff Ordering Physician: Jorge Chao MD Cleaning Manager: Melquiades Flores, RAHUL, RT Attending Provider: John Ontiveros MD Referring Physician: Zhanna WARE; Exam Type: CA echo dop color flow w con Study Info Indications I21.4 - Non-ST elevation (NSTEMI) myocardial infarction Complete two-dimensional, color flow and Doppler transthoracic echocardiogram is performed with contrast to opacify the left ventricle and to improve the deliniation of the left ventricle endocardial borders. Summary 1. Left ventricular chamber dimension is normal. 2. Left ventricular systolic function is normal, estimated at 60-65%. 3. There is mildly increased left ventricular wall thickness. 4. The left ventricular diastolic function is normal. 5. The basal inferior wall, and mid inferior wall are hypokinetic. 6. There is mild mitral valve regurgitation. 7. There is mild tricuspid valve regurgitation. 8. There is mild pulmonic regurgitation. Left Ventricle Left ventricular chamber dimension is normal. Left ventricular systolic function is normal, estimated at 60-65%. There is mildly increased left ventricular wall thickness. The left ventricular diastolic function is normal. The basal inferior wall, and
== END 2021-08-05 12:54 | disposition home or self-care (01) | DRG 247 ==
LOC: ANHED 23:46 → ANHIMU 08-04 00:26
PROVIDERS: Emergency Medicine; Family Medicine; Internal Medicine Cardiovascular Disease; Admitting Provider Internal Medicine; Emergency Provider Family Medicine; PCP Internal Medicine; Visit Provider Internal Medicine
PROC: 4A023N7 Measurement of Cardiac Sampling and Pressure, Left Heart, Percutaneous Approach (ICD-10-PCS; CPT 93452; principal; 2021-08-04 12:00)
PROC: 027135Z Dilation of Coronary Artery, Two Arteries with Two Drug-eluting Intraluminal Devices, Percutaneous Approach (ICD-10-PCS; 2021-08-04 12:00)
PROC: 027135Z Dilation of Coronary Artery, Two Arteries with Two Drug-eluting Intraluminal Devices, Percutaneous Approach (ICD-10-PCS; CPT 92928; 2021-08-04 12:00)
PROC: 027135Z Dilation of Coronary Artery, Two Arteries with Two Drug-eluting Intraluminal Devices, Percutaneous Approach (ICD-10-PCS; 2021-08-04 12:00)
DX: I21.4 Non-ST elevation (NSTEMI) myocardial infarction (principal); I47.1 Supraventricular tachycardia; I10 Essential (primary) hypertension; E78.2 Mixed hyperlipidemia; E55.9 Vitamin D deficiency, unspecified; E66.9 Obesity, unspecified; F17.290 Nicotine dependence, other tobacco product, uncomplicated; G47.10 Hypersomnia, unspecified; N28.9 Disorder of kidney and ureter, unspecified; R74.01 Elevation of levels of liver transaminase levels; R73.03 Prediabetes; Z79.899 Other long term (current) drug therapy; Z68.30 Body mass index [BMI] 30.0-30.9, adult; Z20.822 Contact with and (suspected) exposure to COVID-19; Z28.21 Immunization not carried out because of patient refusal
CPT/HCPCS: 36415; 71046; 80048; 80053; 80061; 83036; 83690; 84484; 85025; 85027; 85610; 85730; 93005; 93306; 93458; 99291; A9270; C1725; C1760; C1769; C1874; C1887; C1894; C8929; C9600; C9803; G0269; J0583; J1644; J1650; J2250; J2270; J3010; J7030; Q9957; U0003; U0005

== ENCOUNTER 2022-10-19 11:00 | Outpatient (RCR) | payer BC, SELFPAY | END 2022-10-19 13:50 | disposition home or self-care (01) | LOC: ANHCPREHAB 11:00 | PROVIDERS: PCP Family Medicine; Visit Provider Internal Medicine Cardiovascular Disease | DX: Z95.5 Presence of coronary angioplasty implant and graft (principal) | CPT/HCPCS: 93798 ==

== ENCOUNTER 2025-01-26 01:10 | Day surgery (SDC) | payer OTHER, SELFPAY ==
[2025-01-09 14:41] VITALS: BMI 29.6
--- NOTE | 2025-01-09 15:04 | PC.NURSE ---
Addendum entered by Lisbet Grant RN 01/15/25 08:28: 01/15/25 Reviewed medications with patient and when to stop his Xarelto. Pt verbalizes understanding. Original Note: Spoke with PATIENT_ regarding medication _XARELTO_. _PATIENT_verbalizes understanding that the last dose is to be taken on _01/22/2025_ and the Endoscopist will instruct them when to restart after the procedure. Remain on aspirin.
--- OUTSIDE RECORDS SUMMARY | 2025-01-26 01:13 | XMS_ITS | Referral Summary ---
Author Organization [facility] [place] [address] Address [address] [place] [address] Care Team Providers Care Pulling Unit Operator Name Role Phone Bean Cates MD Primary Care Provider [phone] Allergies No known active allergies Medications atorvastatin (LIPITOR) 40 mg tablet Take 40 mg by mouth nightly at bedtime. 2 Active metoprolol tartrate (LOPRESSOR) 25 mg immediate release tablet Take 25 mg by mouth every 12 (twelve) hours 2 Active Brilinta 90 mg tablet Take 90 mg by mouth 2 (two) times a day 2 Active lisinopriL (PRINIVIL,ZESTR IL) 40 mg tablet Take 1 tablet (40 mg total) by mouth daily 90 tablet 1 2 Active amoxicillin-cla vulanate (AUGMENTIN) 875-125 mg per tablet Take 1 tablet by mouth 2 (two) times a day Last dose due 03/28/22 Sinus infection Active multivitamin capsule Take 1 capsule by mouth daily Active cholecalciferol (VITAMIN D-3) 2000 unit capsule Take 2,000 Units by mouth daily Active aspirin 81 mg enteric coated tablet TAKE 81 MG BY MOUTH EVERY MORNING 30 DAYS 30 tablet 3 2 Active Active Problems Problem Noted Date Diagnosed Date CAD, multiple vessel 03/29/2022 Chest pain 03/14/2022 Overview (03/14/2022): Added automatically from request for surgery [id number] 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 08/30/2021 Lipid screening 08/30/2021 Hyperlipidemia associated with type 2 diabetes joseph colón 08/30/2021 Hypertension associated with diabetes 08/30/2021 PAT (paroxysmal atrial tachycardia) 08/30/2021 Amputation of right little finger 08/30/2021 Immunizations Immunization Administration Dates Next Due Influenza, Quadrivalent, Berna l Culture-based MDCK, Preservative Free, Antibiotic Free, Intramuscular 04/09/2017 Influenza, Quadrivalent, Split, Intramuscular Influenza, Quadrivalent, Spl it, Preservative Free, Intramuscular 04/05/2020,04/29/2018 Tdap 09/30/2019,01/04/2015 Social History Tobacco Use Types Packs/Day Years Used Date Smoking Tobacco: Some Days Cigars Tobacco Cessation:Ready to Q uit: No; Counseling Given: Yes AUDIT-C Answer Date Recorded Q1: How often do you have a drink containing alc ohol? 2-4 times a month 03/29/2022 Q2: How many drinks containi ng alcohol do you have on a typical day when you are drinking? 1 or 2 03/29/2022 Q3: How often do you have si x or more drinks on one occasion? 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 Gender Identity Not on file Sexual Orientation Not on file Last Filed Vital Signs Vital Sign Reading Time Taken Comments Blood Pressure 120/80 04/05/2022 10:16 AM CDT Pulse 62 04/05/2022 10:16 AM CDT Temperature 36.8 C (98.2 F) 03/30/2022 7:38 AM CDT Respiratory Rate 18 03/30/2022 7:38 AM CDT Oxygen Saturation 98% 04/05/2022 10:16 AM CDT Inhaled Oxygen Concentration - - Weight 93 kg (205 lb 1.6 oz) 04/05/2022 10:16 AM CDT Height 175.3 cm (5' 9) 04/05/2022 10:16 AM CDT Body Mass Index 30.29 04/05/2022 10:16 AM CDT Plan of Treatment Not on file Medical Devices Implanted Type Area Director Heart Device Identifier Shelf Expiration Date Model / Serial / Lot [employer] [employer] Express Angio-Seal Vip 6fr Closere Device [id number] - [id number] - [id number] Implanted:Qty : 1 on 03/29/2022 by Reid Courtney MD at [facility] Collagen N/A: Femoral Ter[employer] Joel 11/22/2022 [id number] / [id number] [employer] Resolute Isaac 2.75mm 2.1-2.7fr 26mm 140cm Rapid Exchange [id number] - [id number] - [id number] Implanted:Qty : 1 on 03/29/2022 by Reid Courtney MD at [facility] Stent N/A: Coronary Artery Medtronic Inc 09/01/2024 [id number] / [id number] / [id number] [employer] Resolute [place] 3.5mm 2.1-2.7fr 15mm 140cm Rapid Exchange [id number] - [id number] - [id number] Implanted:Qty : 1 on 03/29/2022 by Reid Courtney MD at [facility] Stent N/A: Coronary Artery Med[employer]onic Inc 11/10/2024 [id number] / [id number] / [id number] Procedures Procedure Name Priority Date/Time Associated Diagnosis Comments EGFR Routine 03/30/2022 3:03 AM CDT HEMOGLOBIN A1C Routine 03/30/2022 3:03 AM CDT LIPID PANEL Routine 03/30/2022 3:03 AM CDT from Last 3 Months or Most Recently Relevant to Health Maintenance Results * eGFR (03/30/2022 3:03 AM CDT) [facility] eGFR 96 mL/min/1. 73 m2 DELILAH NARVAEZ Comment: Interpretive Data Reference Interval Normal >/= 90 mL/min/1.73m2 Mildly decreased* 60 - 89 mL/min/1.73m2 Mildly to moderately decreased 45 - 59 mL/min/1.73m2 Moderately to severely decreased 30 - 44 mL/min/1.73m2 Severely decreased 15 - 29 mL/min/1.73m2 Kidney Failure < 15 mL/min/1.73m2 *Relative to young adult level Estimated glomerular filtration rate is determined by the 2020 CKD-EPI equation recommended by the National Kidney Foundation (A Unifying Approach to GFR Estimation: Recommendations of the NKF-ASK Task Force on Reassessing the Inclusion of Race in Diagnosing Kidney Disease, JASN 202). The CKD-EPI equation should not be used for patients with unstable renal function and has not been validated in children and those over 70. Current interpretive data was last reviewed 2021. Blood 03/30/2022 3:03 AM CDT 03/30/2022 3:32 AM CDT Reid Courtney MD LAB BLOOD ORDERABLES Final Result Performing Organization Address [facility] de Phone Number DELILAH NARVAEZ [id number] [place] [address] * (ABNORMAL) Hemoglobin A1c (03/30/2022 3:03 AM CDT) Hgb A1C 6.5(H) 4.0 - 5.6 % DELILAH NARVAEZ Estimated Average Glucose 140 mg/dL DELILAH NARVAEZ Comment: The ADA recommends reporting an estimated Average Glucose (eAG) with all Hemoglobin A1c results using the equation derived from a study of 507 normal and diabetic adults. Minority populations were underrepresented and children were not included. (Diabetes Care 31:8939-2490, 2008). The eAG is not equivalent to a fasting glucose. Blood 03/30/2022 3:03 AM CDT 03/30/2022 3:33 AM CDT Reid Courtney MD LAB BLOOD ORDERABLES Final Result Performing Organization Address [facility] Co de Phone Number DELILAH NARVAEZ [address] [place] [address] * (ABNORMAL) Lipid panel (03/30/2022 3:03 AM CDT) Cholesterol 143 30 - 199 mg/dL DELILAH Comment: Interpretive Data Ages < or = 19 years Acceptable: <170 mg/dL Borderline high: 170-199 mg/dL High: >or= 200 mg/dL Ages > or = 20 years Desirable: <200 mg/dL Borderline high: 200-239 mg/dL High: >or= 240 mg/dL Literature References: 1. Expert Panel on Integrated Guidelines for Cardiovascular Health and Risk Reduction in Children and Adolescents. Pediatrics 2011;128:S213 2. NCEP Expert Panel. Circulation 2004;110:227 Current Interpretive Data was last revised on 2018. Triglycerides 244(H) <=149 mg/dL DELILAH Comment: Interpretive Data Ages < or = 9 years Acceptable: <75 mg/dL Borderline high: 75-99 mg/dL High: >or= 100 mg/dL Ages 10 to 20 years Acceptable: <90 mg/dL Borderline high: 90-129 mg/dL High: >or= 130 mg/dL Ages > or = 20 years Desirable: <150 mg/dL Borderline high: 150-199 mg/dL High: 200-499 mg/dL Very high: >or= 499 mg/dL Literature References: 1. Expert Panel on Integrated Guidelines for Cardiovascular Health and Risk Reduction in Children and Adolescents. Pediatrics 2011;128:S213 2. NCEP Expert Panel. Circulation 2004;110:227 Current Interpretive Data was last revised on 2018. HDL 42 >=40 mg/dL DELILAH Comment: Interpretive Data Ages < or = 19 years Acceptable: >45 mg/dL Borderline low: 40-45 mg/dL Low: <40 mg/dL Ages > or = 20 years Desirable: >or= 60 mg/dL Low: <40 mg/dL Literature References: 1. Expert Panel on Integrated Guidelines for Cardiovascular Health and Risk Reduction in Children and Adolescents. Pediatrics 2011;128:S213 2. NCEP Expert Panel. Circulation 2004;110:227 Current Interpretive Data was last revised on 2018. LDL, calculated 52 <=129 mg/dL DELILAH Comment: Interpretive Data Ages < or = 19 years Acceptable: <110 mg/dL Borderline high: 110-129 mg/dL High: >or= 130 mg/dL Ages > or = 20 years Optimal: <100 mg/dL Near optimal: 100-129 mg/dL Borderline high: 130-159 mg/dL High: >160 mg/dL Literature References: 1. Expert Panel on Integrated Guidelines for Cardiovascular Health and Risk Reduction in Children and Adolescents. Pediatrics 2011;128:S213 2. NCEP Expert Panel. Circulation 2004;110:227 Current Interpretive Data was last revised on 2018. Non-HDL Cholesterol 101 mg/dL DELILAH NARVAEZ Comment: Interpretive Data Ages < or = 19 years Acceptable: <120 mg/dL Borderline high: 120-144 mg/dL High: >145 mg/dL Ages > or = 20 years When triglycerides are >200 mg/dL, Non-HDL cholesterol is a secondary target of therapy with treatment goals that are 30 mg/dL greater than the LDL cholesterol target. Literature References: 1. Expert Panel on Integrated Guidelines for Cardiovascular Health and Risk Reduction in Children and Adolescents. Pediatrics 2011;128:S213 2. NCEP Expert Panel. Circulation 2004;110:227 Current Interpretive Data was last revised on 2018. Chol/HDL ratio 3 DELILAH NARVAEZ Blood 03/30/2022 3:03 AM CDT 03/30/2022 3:32 AM CDT us Reid Courtney MD LAB BLOOD ORDERABLES Final Result DELILAH NARVAEZ [id number] [place] [address] from Last 3 Months or Most Recently Relevant to Health Maintenance Insurance [facility] Address: [facility] [id number] [place] [address] [facility] Advance Directives For more information, please contact: [phone] * Full Code (Latest Code Status on File) Date Activated Date Inactivated Comments 03/29/2022 2:21 PM 03/30/2022 3:56 PM Care Teams Pulling Unit Operator Relationship Specialty Start Date End Date Bean Cates MD [address] [place] [address] PCP - General Internal Medicine 08/03/21
--- OUTSIDE RECORDS SUMMARY | 2025-01-26 01:13 | XMS_ITS | Clinical Summary ---
Author Organization [facility] Address [address] [place] [address] Care Team Providers Care Matzo Forming Machine Operator Name Role Phone Melquiades Trejo DO Primary Care Provider [phone] Source Comments [facility],non-owned Affiliates and Associated Physician Practices is amultiple site organization consisting of ambulatory clinics and hospital sitesin [place], [place], [place] and [place]. This disclosure is being madepursuant to the Care Everywhere program and may not contain all information available regarding this patient. Last updated 18.[facility] Allergies No known active allergies Medications * Be aware that medications may not be up to date on this document. Alwaysverify current medications with the patient. lisinopril (PRINIVIL; ZESTRIL) 40 MG tablet Take 1 (one) tablet by mouth at bedtime Active multivitamin daily tablet Take 1 (one) tablet by mouth daily with food Active metoprolol succinate XL 24hr (Toprol XL) 25 MG tablet Take 0.5 (one-half) tablet by mouth once daily Active vitamin D3 (Cholecalcifero l) 25 MCG (1000 UNITS) tablet Take 4 (four) tablets by mouth once daily Active aspirin EC (Ecotrin) 81 MG tablet Take 1 (one) tablet by mouth once daily Active ticagrelor (Brilinta) 90 MG tablet Take 1 (one) tablet by mouth once daily Active ezetimibe (Zetia) 10 MG tablet Take 1 (one) tablet by mouth once daily Active empagliflozin (Jardiance) 10 MG tablet Take 1 (one) tablet by mouth once daily Active atorvastatin (Lipitor) 40 MG tablet Take 1 (one) tablet by mouth at bedtime Active icosapent ethyl (Vascepa) 1 g capsule Take 4 (four) capsules by mouth 2 times daily with morning and evening meal Active HYDROcodone-casey taminophen (Eden) 5-325 MG tabletIndicatio ns:Neck pain,Strain of left trapezius muscle, initial encounter Take 1 (one) tablet by mouth every 6 hours as needed for Pain 12 tablet 01/13/2023 Active diazePAM (Valium) 5 MG tablet Take 1 (one) tablet by mouth 3 times daily as needed for Spasms 12 tablet 01/13/2023 Active lidocaine (Lidoderm) 5 % patch Apply 1 (one) patch to skin once daily Apply patch to most painful area and remove after 12 hours. May reapply a new patch 12 hours later. 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 Gender Identity Not on file Sexual Orientation Not on file Last Filed Vital Signs Vital Sign Reading Time Taken Comments Blood Pressure 132/88 01/13/2023 8:45 PM CDT Pulse 75 01/13/2023 8:45 PM CDT Temperature 36.7 C (98 F) 01/13/2023 8:45 PM CDT Respiratory Rate 19 01/13/2023 8:45 PM CDT Oxygen Saturation 93% 01/13/2023 8:45 PM CDT Inhaled Oxygen Concentration - - Weight 95.3 kg (210 lb 3.2 oz) 01/13/2023 5:56 P M CDT Height 175.3 cm (5' 9) 01/13/2023 5:56 PM CDT Body Mass Index 31.04 01/13/2023 5:56 PM CDT Plan of Treatment Health Maintenance Due Date Last Done Comments AMAYA (AGES 45-75) - COLON CA SCREENING 1962 COLON MONITORING 1962 COLONOSCOPY - COLON CA SCREENING 1962 CT COLONOGRAPHY - COLON CA SCREENING 1962 Colorectal Cancer Screening 1962 FIT - COLON CA SCREENING 1962 FLEX SIG - COLON CA SCREENING 1962 HIV SCREENING 1977 HEPATITIS C SCREENING 08/19/1980 PNEUMOCOCCAL VACCINE 50+ (1 of 2 - PCV) 1981 ZOSTER VACCINE (1 of 2) 2012 Respiratory Syncytial Virus (RSV) Vaccine Pt: or over 60 yrs (1 - Risk 60-74 years 1-dose series) 2022 COVID-19 VACCINE (1 - season) 2024 DEPRESSION SCREENING 06/25/2024 INFLUENZA VACCINE (#1) 2025 0, 04/25/2019, 04/29/2018, Additional history exists SCREENING FOR DIABETES 01/13/2026 01/13/2023 DTAP/TDAP/TD VACCINES (2 - Td or Tdap) 09/29/2029 09/30/2019 HEPATITIS B VACCINE Aged Out No longe r eligible based on patient's age to complete this topic HIB VACCINE Aged Out No longer eligi ble based on patient's age to complete this topic HPV VACCINE Aged Out No longer eligi ble based on patient's age to complete this topic MENINGOCOCCAL (Group B) VACCINE SHARED DECISION-MAKING Aged Out No longer eligible based on patient's age to complete this topic MENINGOCOCCAL GROUPS A/C/Y/W VACCINE Aged Out No longer eligible based on patient's age to complete this topic Procedures Procedure Name Priority Date/Time Associated Diagnosis Comments COMPREHENSIVE METABOLIC PANEL STAT 01/13/2023 6:40 PM CDT from Last 3 Months or Most Recently Relevant to Health Maintenance Results * (ABNORMAL) COMPREHENSIVE METABOLIC PANEL (01/13/2023 6:40 PM CDT) Sodium 138 136 - 145 mmol/L 01/13/2023 7:17 PM CDT [facility] Potassium 4.2 3.5 - 5.1 mmol/L 01/13/2023 7:17 PM CDT [facility] Chloride 104 98 - 107 mmol/L 01/13/2023 7:17 PM CDT [facility] CO2 24 22 - 29 mmol/L 01/13/2023 7:17 PM CDT [facility] Anion Gap 10 6 - 16 mmol/L 01/13/2023 7:17 PM CDT [facility] Glucose 117(H) 70 - 105 mg/dL 01/13/2023 7:17 PM CDT [facility] BUN 20 8.4 - 25.7 mg/dL 01/13/2023 7:17 PM CDT [facility] Creatinine 1.06 0.72 - 1.25 mg/dL 01/13/2023 7:17 PM CDT [facility] BUN/Creatinine Ratio 18.9 11.7 - 20.6 01/13/2023 7:17 PM CDT [facility] Calcium 9.4 8.4 - 10.2 mg/dL 01/13/2023 7:17 PM CDT [facility] Protein Total 6.9 6.4 - 8.3 gm/dL 01/13/2023 7:17 PM CDT [facility] Albumin 4.3 3.5 - 5.0 gm/dL 01/13/2023 7:17 PM CDT [facility] ALT 35 0 - 55 U/L 01/13/2023 7:17 PM CDT [facility] AST 27 5 - 34 U/L 01/13/2023 7:17 PM CDT [facility] Alkaline Phosphatase 108 40 - 150 U/L 01/13/2023 7:17 PM CDT [facility] Bilirubin Total 0.7 0.2 - 1.2 mg/dL 01/13/2023 7:17 PM CDT [facility] Globulin Total 2.6 1.3 - 4.7 gm/dL 01/13/2023 7:17 PM CDT [facility] Albumin/Globulin Ratio 1.7 1.1 - 2.2 01/13/2023 7:17 PM CDT [facility] Osmolality Calculated 270 260 - 286 mOsm/kg 01/13/2023 7:17 PM CDT [facility] eGFR by CKD-EPI 80(L) >=90 mL/min/1.7 3 m2 01/13/2023 7:17 PM T [facility] Blood BLOOD SPECIMEN / Unknown Venipuncture / Unknown 01/13/2023 6:40 PM CDT 01/13/2023 6:44 PM CDT Narrative [facility] - 01/13/2023 7:17 PM CDT ADA Comment: The [place] Diabetes Association recommends a fasting glucose concentration of 99 mg/dL as the upper limit of normal. Note:EGFR Reference Ranges have been established for adults between the ages of 18 and 70. ESTIMATE STAGES OF CHRONIC KIDNEY DISEASE Stage Description EGFR 1. Kidney damage with normal or increased EGFR > or =90 mL/min/1.73 m 2. Kidney damage with mildly decreased EGFR 60-89 mL/min/1.73 m 3. Moderately decreased EGFR 30-59 mL/min/1.73 m 4. Severely decreased EGFR 15-29 mL/min/1.73 m 5. Kidney Failure EGFR <15 mL/min/1.73 m The GFR result was calculated using the updated CKD-EPI Creatinine Equation (2020) Rashmi Schroeder ORNAMENTAL IRON WORKER HELPER-PARTS COORDINATOR LAB - CHEMISTRY ORDERABLES Formerly [facility] Result [facility] [address] [place] [address] from Last 3 Months or Most Recently Relevant to Health Maintenance Insurance [facility] Care Teams Matzo Forming Machine Operator Relationship Specialty Start Date End Date Melquiades Trejo DO [address] [place] [id number] PCP - General 10/27/22
--- OUTSIDE RECORDS SUMMARY | 2025-01-26 01:13 | XMS_ITS | Clinical Summary ---
Author Organization [facility] Address [address] [place] [address] Care Team Providers Care Wedding Transportation Driver Name Role Phone Non-Staff, Provider Primary Care Provider Vikki labmarc Allergies No known active allergies Medications icosapent ethyl (VASCEPA) 1 G capsule Take 2 capsules (2 g total) by mouth 2 (two) times daily. Take with food. Active aspirin EC (ECOTRIN) 81 MG tablet Take 1 tablet (81 mg total) by mouth daily. Active ticagrelor (BRILINTA) 90 mg tablet Take by mouth 2 (two) times daily. Active ezetimibe (ZETIA) 10 MG tablet Take 1 tablet (10 mg total) by mouth daily. Active lisinopril (PRINIVIL) 40 MG tablet Take 1 tablet (40 mg total) by mouth daily. Active metoprolol succinate ER (TOPROL-XL) 25 MG 24 hr tablet Take 0.5 tablets (12.5 mg total) by mouth 2 (two) times daily. Active methylPREDNISol one, ANDREW, (MEDROL DOSEPAK) 4 MG tablet 6 TABLETS ON DAY ONE, 5 TABLETS DAY TWO, 4 TABLETS DAY THREE, 3 TABLETS DAY FOUR, 2 TABLETS DAY FIVE, AND 1 TABLET DAY SIX 1 each 01/29/2023 Active traMADol (ULTRAM) 50 MG tabletIndicatio ns:Acute Pain < 7 Day Supply Take 1 tablet (50 mg total) by mouth every 6 (six) hours as needed for Pain. Indications: Acute Pain < 7 Day Supply 20 tablet 01/29/2023 Active Social History Tobacco Use Types Packs/Day Years Used Date Smoking Tobacco: Never Smokeless Tobacco: Never Tobacco Cessation:Counseling Given: Not Answered Alcohol Use Standard Drinks/Week Comments Yes 0 (1 standard drink = 0.6 oz pur e alcohol) couple drinks a day Sex and Gender Information Value Date Recorded Sex Assigned at Not on file Legal Sex Male 9:24 AM CDT Gender Identity Not on file Sexual Orientation Not on file Last Filed Vital Signs Vital Sign Reading Time Taken Comments Blood Pressure 157/69 01/29/2023 11:45 AM CDT Pulse 58 01/29/2023 11:45 AM CDT Temperature 36.3 C (97.3 F) 01/29/2023 11:45 AM CDT Respiratory Rate 16 01/29/2023 11:45 AM CDT Oxygen Saturation 99% 01/29/2023 11:45 AM CDT Inhaled Oxygen Concentration - - Weight 88.5 kg (195 lb) 01/29/2023 9:34 AM CDT Height 175.3 cm (5' 9) 01/29/2023 9:34 AM CDT Body Mass Index 28.8 01/29/2023 9:34 AM CDT Plan of Treatment Health Maintenance Due Date Last Done Comments Colorectal Cancer Screening Colonoscopy (10 Years) 1962 Annual Physical 1965 Hepatitis C 1980 Pneumococcal Vaccine: 50+ Years (1 of 1 - PCV) 2012 Zoster Vaccines (1 of 2) 2012 COVID-19 Vaccine (1 - 2023-2 5 season) 2024 DTaP, Tdap and Td Vaccines ( 3 - Td or Tdap) 09/29/2029 09/30/2019, 01/04/2015 RSV Immunization or 60+ Years (1 - 1-dose 75+ series) 2037 Meningococcal B Vaccine Aged Out No l onger eligible based on patient's age to complete this topic Meningococcal Vaccine Aged Out No siena bj eligible based on patient's age to complete this topic RSV Immunizations Under 20 Months Aged Out No longer eligible b ased on patient's age to complete this topic Insurance Care Teams Wedding Transportation Driver Relationship Specialty Start Date End Date Non-Staff, Provider PCP - General UNKNOWN PHYSICIAN SPECIALTY 01/29/23
--- OUTSIDE RECORDS SUMMARY | 2025-01-26 01:13 | XMS_ITS | Clinical Summary ---
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 08/30/2021 Lipid screening 08/30/2021 Hyperlipidemia associated with type 2 diabetes m katarzyna 08/30/2021 Hypertension associated with diabetes 08/30/2021 PAT (paroxysmal atrial tachycardia) 08/30/2021 Amputation of right little finger 08/30/2021 Immunizations Immunization Administration Dates Next Due Influenza, Quadrivalent, Berna l Culture-based MDCK, Preservative Free, Antibiotic Free, Intramuscular 04/09/2017 Influenza, Quadrivalent, Split, Intramuscular Influenza, Quadrivalent, Spl it, Preservative Free, Intramuscular 04/05/2020,04/29/2018 Tdap 09/30/2019,01/04/2015 Surgical History Surgery Date Site/Laterality Comments CARDIAC CATHETERIZATION X 2 CARDIAC STENT PLACEMENT LUMBAR DISC SURGERY NOSE SURGERY FINGER AMPUTATION Medical History Medical History Date Comments Chest pain Hypertension HLD (hyperlipidemia) Acute sinus infection Family History Medical History Relation Name Comments Angina Father Cancer Father Hypertension Father Heart attack Father's Brother Diabetes Maternal Grandmother Hypertension Maternal Grandmother Stroke Maternal Grandmother No Known Problems Mother Relation Name Status Comments Father Father's Brother Maternal Grandmother Mother Alive Paternal Grandmother Social History Tobacco Use Types Packs/Day Years [...] on file 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 Gender Identity Not on file Sexual Orientation Not on file Obstetrics History Last Filed Vital Signs Vital Sign Reading [...] 04/05/2022 10:16 AM CDT Plan of Treatment Health Maintenance Due Date Last Done Comments Albumin Creatinine Ratio, Urine 1960 Colon Cancer Screening-Colonoscopy 1960 Depression Screening 1960 Hepatitis C Screening 1960 Prostate Cancer Screening-PSA 1962 Dilated Eye Exam 1960 Foot Exam 1962 Hepatitis B Screening 1980 Regular Well Visit/Exam 18-64 1980 Pneumococcal vaccine <65 (1 of 2 - PCV) 1981 Zoster Vaccine (1 of 2) 2012 Hemoglobin A1C 09/28/2022 03/30/2022 Lipid Panel 03/30/2023 03/30/2022, 11/24, 08/30/2021 eGFR 03/30/2023 03/30/2022, 03/20/2022 Influenza Vaccine (#1) 2025 , 04/25/2019, 04/29/2018, Additional history exists DTaP/Tdap/Td Vaccine (3 - Td or Tdap) 09/29/2029 09/30/2019, 01/04/2015 Medical Devices Implanted 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 Device Identifier Shelf Expiration Date Model / Serial / Lot [employer] Joel Angio-Seal Vip 6fr Closere Device [id number] - [id number] - [id number] Implanted:Qty : 1 on 03/29/2022 by Reid Courtney MD at [facility] Collagen N/A: Femoral [employer] Joel 11/22/2022 [id number] / [id number] [employer] Resolute [place] 2.75mm 2.1-2.7fr 26mm 140cm Rapid Exchange [id number] - [id number] - [id number] Implanted:Qty : 1 on 03/29/2022 by Reid Courtney MD at [facility] Stent N/A: Coronary Artery Med[employer]onic Inc 09/01/2024 [id number] / [id number] / [id number] [employer] Resolute [place] 3.5mm 2.1-2.7fr 15mm 140cm Rapid Exchange [id number] - [id number] - [id number] Implanted:Qty : 1 on 03/29/2022 by Reid Courtney MD at [facility] Stent N/A: Coronary Artery Med[employer] Inc 11/10/2024 [id number] / [id number] / [id number] Procedures Procedure Name Priority Date/Time Associated Diagnosis Comments EGFR Routine 03/30/2022 3:03 AM CDT HEMOGLOBIN A1C Routine 03/30/2022 3:03 AM CDT LIPID PANEL Routine 03/30/2022 3:03 AM CDT from Last 3 Months or Most Recently Relevant to Health Maintenance Results * eGFR (03/30/2022 3:03 AM CDT) eGFR 96 mL/min/1. 73 m2 DELILAH NARVAEZ [...] of Race in Diagnosing Kidney Disease, JASN 2020). The CKD-EPI equation should not be used for patients with unstable renal function and has not been validated in children and those over 70. Current interpretive data was last reviewed 2021. Blood 03/30/2022 3:03 AM CDT 03/30/2022 3:32 AM CDT Reid Courtney MD LAB BLOOD ORDERABLES Final Result Performing Organization Address [facility] Co de Phone Number DELILAH NARVAEZ [address] [facility] [place] [address] * (ABNORMAL) Hemoglobin A1c (03/30/2022 3:03 AM CDT) Hgb A1C 6.5(H) 4.0 - 5.6 % EDLILAH Estimated Average Glucose 140 mg/dL DELILAH NARVAEZ Comment: The ADA recommends reporting an estimated Average Glucose (eAG) with all Hemoglobin A1c results using the equation derived from a study of 507 normal and diabetic adults. Minority populations were underrepresented and children were not included. (Diabetes Care 31:7266-0586, 2008). The eAG is not equivalent to a fasting glucose. Blood 03/30/2022 3:03 AM CDT 03/30/2022 3:33 AM CDT us Reid Courtney MD LAB BLOOD ORDERABLES Final Result Performing Organization Address [facility] de Phone Number DELILAH NARVAEZ [address] [facility] [place] [address] * (ABNORMAL) Lipid panel (03/30/2022 3:03 AM [...] on 2018. Triglycerides 244(H) <=149 mg/dL DELILAH NARVAEZ Comment: Interpretive Data Ages [...] on 2018. HDL 42 >=40 mg/dL DELILAH NARVAEZ Comment: Interpretive Data Ages [...] 2018. LDL, calculated 52 <=129 mg/dL DELILAH NARVAEZ Comment: Interpretive Data Ages [...] LAB BLOOD ORDERABLES Final Result DELILAH NARVAEZ [id number] [place] [address] from Last 3 Months or Most Recently Relevant to Health Maintenance [place] [address] [facility] [employer] [facility] Advance Directives For more information, please contact: [phone] * Full Code (Latest Code Status on File) Date Activated Date Inactivated Comments 03/29/2022 2:21 PM 03/30/2022 3:56 PM Care Teams Tmd Teacher Assistant Relationship Specialty Start Date End Date Bean Cates MD [address] [place] [address] PCP - General Internal Medicine 08/03/21
--- OUTSIDE RECORDS SUMMARY | 2025-01-26 01:13 | XMS_ITS | Encounter Summary ---
Author Organization [facility] Address [address] [place] [address] Care Team Providers Care Binman Name Role Phone Petey Pena MD Primary Care Provider [phone] Melquiades Trejo DO Primary Care Provider [phone] Encounter Details Date Type Department Care Team (Late st Contact Info) Description 10/16/2019 Telephone [facility] [address] [place] [address] Riki Reynoso MD [address] OF PLASTIC SURGERY [place], [place] [id number] Social History Tobacco Use Types Packs/Day Years Used Date Smoking Tobacco: Every Day Cigarettes Cigars Smokeless Tobacco: Never Comments:2-3 cigars a week Alcohol Use Standard Drinks/Week Comments Yes 10 (1 standard drink = 0.6 oz pu re alcohol) Sex and Gender Information Value Date Recorded Sex Assigned at Not on file 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 No / Unsure 10/14/2019 2:05 PM CDT documented as of this encounter Miscellaneous Notes * Telephone Encounter - MarkAzmarc Delgado - 10/16/2019 9:03 AM CDT Per Krystyna @ [employer] for cpt codes 06450, 75901, 82902, 96920, 95116, 74782, 66828, 63381,66955, 34210, 76753, 00732, 28471, 32742, call reference # [id number]. documented in this encounter Plan of Treatment Not on file documented as of this encounter Visit Diagnoses Not on filedocumented in this encounter Care Teams Binman Relationship Specialty Start Date End Date Petey Pena MD [address] [place] [address] PCP - General 07/31/18 10/26/22 Melquiades Trejo DO [address] [place] [phone] PCP - General 10/27/22 documented as of this encounter
--- OUTSIDE RECORDS SUMMARY | 2025-01-26 01:13 | XMS_ITS | Clinical Summary ---
Author Organization 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, Abstract from Last 3 Months Social History Tobacco Use Types Packs/Day Years Used Date Smoking Tobacco: Never Assessed Sex and Gender Information Value Date Recorded Sex Assigned at Not on file Legal Sex Male 10:32 PM CDT Gender Identity Not on file Sexual Orientation Not on file Plan of Treatment Health Maintenance Due Date Last Done Comments DIABETES ANNUAL FOOT EXAM 1980 DIABETES ANNUAL RETINAL EXAM 1980 DIABETES MICROALBUMIN ANNUAL SCREEN 1980 LDL CHOLESTEROL ANNUAL 1980 COLORECTAL SCREENING 08/25/2007 Colorectal Cancer Screening 08/25/2007 FIT-DNA Q 3 years 08/25/2007 FIT/FOBT Q 1 year 08/25/2007 Flex Sig/CT Colonography Q 5 years 08/25/2007 ZOSTER VACCINE (1 of 2) 2012 DIABETES HBA1C Q 6 MONTHS 08/08/2024 02/06/2024, 11/2021 INFLUENZA VACCINE (#1) 2025 , 04/25/2019, 04/30/2018, Additional history exists DTAP/TDAP/TD VACCINES (4 - T d or Tdap) 09/29/2029 09/30/2019, 01/04/2015, 02/23/2014 RSV VACCINE (60+ or ) (1 - 1-dose 75+ series) 2037 Insurance [facility]
[2025-01-26 06:34] VITALS: BP 124/66; PULSE 62; RESP 18; TEMP 37.1; BMI 29.5
[2025-01-26] MEDS: LACTATED RINGERS 1,000 ML 150 ML IV CONT (06:40)
--- NOTE | 2025-01-26 06:58 | P.PNAN_ITS ---
Anes - Initial Pre Proc Eval Procedure: Operation Date: 01/26/25 07:30 Proposed Procedures p Screening Colonoscopy - Stephen Merida MD Date/Time: 01/26/25 06:58 Surgeon: Stephen Merida MD Pre Op Diagnosis: Encounter for screening for malignant neoplasm of Patient Data Age: 64 Gender: M Height: 1.75 m Weight: 90.7 kg Last Vital Signs Temp 37.1 C 01/26/25 06:34 Pulse 62 01/26/25 06:34 Resp 18 01/26/25 06:34 BP 124/66 01/26/25 06:34 Allergies Allergy/AdvReac Type Severity Reaction Status Date / Time No Known Allergies Allergy Verified 01/26/25 06:30 Home Medications ?Medication ?Instructions ?Recorded ?Confirmed ?Type aspirin 81 mg tablet,delayed 81 mg PO QAM 30 days #30 tabs 08/05/21 01/26/25 Rx release atorvastatin 40 mg tablet 40 mg PO HS 30 days #30 tabs 08/05/21 01/26/25 Rx metoprolol tartrate 25 mg tablet 25 mg PO Q12HR 30 days #60 tabs 08/05/21 01/09/25 Rx nitroglycerin 0.4 mg sublingual 0.4 mg sublingual Q5MIN PRN Chest 08/05/21 01/09/25 Rx tablet (Nitrostat) Pain #30 tabs lisinopril 40 mg tablet 40 mg PO DAILY #90 tabs 02/20/22 01/26/25 Rx Fish Oil 2,000 mg PO DAILY 01/09/25 01/26/25 History amlodipine 10 mg tablet 10 mg PO DAILY 01/09/25 01/26/25 History carvedilol 25 mg tablet 25 mg PO BID 01/09/25 01/15/25 History cholecalciferol (vitamin D3) 100 4,000 unit PO DAILY 01/09/25 01/26/25 History mcg (4,000 unit) capsule coQ10 (ubiquinol) 200 mg capsule 200 mg PO DAILY 01/09/25 01/09/25 History (CoQmax Ubiquinol) empagliflozin 25 mg tablet 25 mg PO DAILY 01/09/25 01/09/25 History (Jardiance) ezetimibe 10 mg tablet 10 mg PO DAILY 01/09/25 01/26/25 History rivaroxaban 2.5 mg tablet (Xarelto) 2.5 mg PO BID 01/09/25 01/26/25 History carvedilol 12.5 mg tablet 12.5 mg PO BID 01/15/25 01/26/25 History Laboratory Tests 01/26/25 06:26 POC Capillary Glucose 125 H mg/dl (65-105) Patient hx anesthesia problems: none Family hx anesthesia problems: none Results Review: All pre-operative results and documents have been reviewed as part of the pre- operative evaluation. [facility] Past Medical History Medical History (Updated 10/03/21 @ 09:49 by Melquiades Trejo, DO) Toe pain, bilateral Encounter for long-term (current) use of other medications Enthesopathy of ankle Epidermal inclusion cyst Heart palpitations Hypersomnia Obesity (BMI 30.0-34.9) Other and unspecified hyperlipidemia PAT (paroxysmal atrial tachycardia) Pain of left great toe Prediabetes Right Achilles tendinitis Screening for malignant neoplasm of prostate declined Subcutaneous mass Ventricular arrhythmia Vitamin D deficiency Essential (primary) hypertension Family History Family History (Updated 10/10/22 @ 08:20 by Marlin George RN) Grandparent Diabetes mellitus Hypertension Cerebrovascular accident Father Family history of lung cancer Hypertension High cholesterol Heart disease Mother High cholesterol Social History Social History (Updated 01/26/25 @ 07:06 by Tom Goodrich, ) Smoking packs per day: 0.1 Smoking cigarettes per day: 2.0 Years smoked: 30 Smoking pack-years: 3.00 Smoking status: Former smoker Tobacco type: cigars Alcohol intake: current Drinks per week: 14 Alcohol use details: beer and scotch. 2-3/day Substance use: never Substance use type: does not use Living arrangements: with family Occupation/Education: retired Gender identity (if verbalized by the patient): Male Sexual Orientation (if Verbalized by the Patient): Straight or Heterosexual Spiritual care concerns: No Anes - Eval Final PreProcedure Day of Procedure 01/26/25 06:58 Patient weight: overweight Heart: regular rate and rhythm Lungs: clear to auscultation Airway: Mallampati scale class II Neurological: alert and oriented Last oral intake: >/= 8 hours ASA classification: III Emergent: no Anesthetic plan: proceed Anesthesia type and monitoring: general GIVS and standard monitoring Results Review: All pre-operative results and documents have been reviewed as part of the pre- operative evaluation. Informed Consent: The patient's anesthetic plan and its attendant risks and benefits were discussed with the patient/family/POA. Questions were solicited and answers provided to the satisfaction of the patient/family/POA.
--- NOTE | 2025-01-26 07:26 | PM.IMHP ---
H&P: HPI History of Present Illness Date/Time: 01/26/25 07:26 Chief Complaint: History of colon polyps Narrative: The patient has a history of colonic polyps, the last colonoscopy was 6 years ago. Review of Systems Review of Systems: All systems reviewed & are unremarkable except as noted in HPI and below PMFSH Past Medical History Medical History (Updated 01/26/25 @ 07:26 by Stephen Merida MD) Toe pain, bilateral Encounter for long-term (current) use of other medications Enthesopathy of ankle Epidermal inclusion cyst Heart palpitations Hypersomnia Obesity (BMI 30.0-34.9) Other and unspecified hyperlipidemia PAT (paroxysmal atrial tachycardia) Pain of left great toe Prediabetes Right Achilles tendinitis Screening for malignant neoplasm of prostate declined Subcutaneous mass Ventricular arrhythmia Vitamin D deficiency Essential (primary) hypertension Family History Family History (Updated 10/10/22 @ 08:20 by Marlin George RN) Grandparent Diabetes mellitus Hypertension Cerebrovascular accident Father Family history of lung cancer Hypertension High cholesterol Heart disease Mother High cholesterol Social History Social History (Updated 01/26/25 @ 07:06 by Tom Goodrich, ) Smoking packs per day: 0.1 Smoking cigarettes per day: 2.0 Years smoked: 30 Smoking pack-years: 3.00 Smoking status: Former smoker Tobacco type: cigars Alcohol intake: current Drinks per week: 14 Alcohol use details: beer and scotch. 2-3/day Substance use: never Substance use type: does not use Living arrangements: with family Occupation/Education: retired Gender identity (if verbalized by the patient): Male Sexual Orientation (if Verbalized by the Patient): Straight or Heterosexual Spiritual care concerns: No Meds Home Medications and Allergies Home Medications ?Medication ?Instructions ?Recorded ?Confirmed ?Type aspirin 81 mg tablet,delayed 81 mg PO QAM 30 days #30 tabs 08/05/21 01/26/25 Rx release atorvastatin 40 mg tablet 40 mg PO HS 30 days #30 tabs 08/05/21 01/26/25 Rx metoprolol tartrate 25 mg tablet 25 mg PO Q12HR 30 days #60 tabs 08/05/21 01/09/25 Rx nitroglycerin 0.4 mg sublingual 0.4 mg sublingual Q5MIN PRN Chest 08/05/21 01/09/25 Rx tablet (Nitrostat) Pain #30 tabs lisinopril 40 mg tablet 40 mg PO DAILY #90 tabs 02/20/22 01/26/25 Rx Fish Oil 2,000 mg PO DAILY 01/09/25 01/26/25 History amlodipine 10 mg tablet 10 mg PO DAILY 01/09/25 01/26/25 History carvedilol 25 mg tablet 25 mg PO BID 01/09/25 01/15/25 History cholecalciferol (vitamin D3) 100 4,000 unit PO DAILY 01/09/25 01/26/25 History mcg (4,000 unit) capsule coQ10 (ubiquinol) 200 mg capsule 200 mg PO DAILY 01/09/25 01/09/25 History (CoQmax Ubiquinol) empagliflozin 25 mg tablet 25 mg PO DAILY 01/09/25 01/09/25 History (Jardiance) ezetimibe 10 mg tablet 10 mg PO DAILY 01/09/25 01/26/25 History rivaroxaban 2.5 mg tablet (Xarelto) 2.5 mg PO BID 01/09/25 01/26/25 History carvedilol 12.5 mg tablet 12.5 mg PO BID 01/15/25 01/26/25 History Allergies Allergy/AdvReac Type Severity Reaction Status Date / Time No Known Allergies Allergy Verified 01/26/25 06:30 Vital Signs Vital Signs - 24 hr 01/26/25 06:34 Temperature 98.8 F Pulse Rate 62 Respiratory Rate 18 Blood Pressure 124/66 Exam Const: General: cooperative and healthy appearing Resp: Effort & Inspection: normal respiratory effort and able to speak in complete sentences Auscultation: clear to auscultation bilaterally Cardio: Rate: regular rate Rhythm: regular rhythm GI: Inspection: normal to inspection GI Palp: No No hepatosplenomegaly present Auscultation: normal bowel sounds Rectal Exam: deferred Skin: General skin exam: normal color Psych: Appearance: grossly normal Mental Status: mental status grossly normal Assessment and Plan Assessment and plan (1) History of colonic polyps: Code(s): Z86.0100 - Personal history of colon polyps, unspecified Status: Acute Assessment and Plan: The patient is deemed a good candidate for the procedure. Consent signed. Will proceed.
[2025-01-26] MEDS: SIMETHICONE ORAL SUSPENSION 20 MG/0.3 ML 30 ML BOTTLE 0.6 ML IRRIGATION (07:41)
--- NOTE | 2025-01-26 07:48 | S_PTH ---
PATIENT: Santos Renee LOC: [facility] U#:[id number] AGE/SX: 64/M ROOM: RE01/26/[address]: Stephen Merida MD : 1960 BED: DIS: 01/26/2025 SPEC #: [id number] RECD: 01/26/25 10:33 STATUS: GIA REBetsy #: [id number] MARIAM: 01/26/25 07:[address]: Stephen Merida DEPT: [facility] Surgical RECD BY: Jodie Turcios Tissues: A - Colon Polypectomy Procedures: Hematoxylin and Eosin Stain Gross and Microscopic Level 4
[2025-01-26 07:52] VITALS: BP 90/55; PULSE 56; RESP 18; O2SAT 98
[2025-01-26 08:02] VITALS: BP 114/67; PULSE 61; RESP 18; O2SAT 100
[2025-01-26 08:12] VITALS: BP 130/81; PULSE 54; RESP 24; O2SAT 98
== END 2025-01-26 08:17 | disposition home or self-care (01) ==
PROVIDERS: Referring Provider Internal Medicine Gastroenterology; Visit Provider Internal Medicine Gastroenterology
PROC: 0DJD8ZZ Inspection of Lower Intestinal Tract, Via Natural or Artificial Opening Endoscopic (ICD-10-PCS; CPT 45378; principal; 2025-01-26 07:30)
DX: Z12.11 Encounter for screening for malignant neoplasm of colon (principal); K63.5 Polyp of colon; K64.8 Other hemorrhoids; I10 Essential (primary) hypertension; R73.03 Prediabetes; E55.9 Vitamin D deficiency, unspecified; R00.2 Palpitations; G47.10 Hypersomnia, unspecified; I47.19 Other supraventricular tachycardia; I49.8 Other specified cardiac arrhythmias; Z79.82 Long term (current) use of aspirin; Z79.84 Long term (current) use of oral hypoglycemic drugs; Z79.01 Long term (current) use of anticoagulants; Z87.891 Personal history of nicotine dependence; Z80.1 Family history of malignant neoplasm of trachea, bronchus and lung; Z82.49 Family history of ischemic heart disease and other diseases of the circulatory system
CPT/HCPCS: 45385; 82948; 88305; J2003; J2704; J7120